=== PATIENT | female | born 1985 | race Hispanic/Latino ===

== ENCOUNTER 2017-10-08 07:02 | Emergency (ER) | payer BC, MEDICAID ==
[~2017-10-08 07:02] MED LIST: AMOX-429 PO; CULTURELLE CAP1 EACH PO; MO6B PO; RANI300T4 PO
== END 2017-10-08 07:50 | disposition home or self-care (01) ==
LOC: EDH 07:02
DX: O99.512 Diseases of the respiratory system complicating pregnancy, second trimester (principal); J06.9 Acute upper respiratory infection, unspecified; H65.03 Acute serous otitis media, bilateral; J45.909 Unspecified asthma, uncomplicated; Z88.1 Allergy status to other antibiotic agents; Z3A.17 17 weeks gestation of pregnancy

== ENCOUNTER 2017-10-11 09:06 | Emergency (ER) | payer BC, MEDICAID ==
[2017-10-11 09:55] LABS: BASOPHILS % (AUTO) 0.4 % (0.0-5.0); EOSINOPHILS % (AUTO) 3.2 % (0.0-8.0); HEMATOCRIT 33.9 % (36-48); LYMPHOCYTES % (AUTO) 26.5 % (21.0-51.0); MEAN CORPUSCULAR HEMOGLOBIN 29.9 pg (27.0-33.0); MEAN CORPUSCULAR HGB CONC 34.6 g/dL (32.0-36.0); MEAN CORPUSCULAR VOLUME 86.3 fL (79-99); MONOCYTES % (AUTO) 5.7 % (3.0-13.0); NEUTROPHILS % (AUTO) 64.2 % (40.0-77.0); PLATELET COUNT (AUTO) 131 K/uL (130-400); RED BLOOD CELL COUNT(AUTO) 3.92 MIL/uL (4.00-5.50); RED CELL DISTRIBUTION WIDTH 13.5 % (11.0-15.5); WHITE BLOOD COUNT (AUTO) 6.9 K/uL (4.8-10.8)
[2017-10-11 09:58] LABS: APPEARANCE,URINE Clear (CLEAR); BILIRUBIN,URINE Negative (NEGATIVE); COLOR,URINE Yellow (YELLOW); GLUCOSE, URINE (UA) Negative (NEGATIVE); KETONES,URINE Negative (NEGATIVE); LEUKOCYTE ESTERASE ,URINE Trace (NEGATIVE); NITRATE,URINE Negative (NEGATIVE); OCCULT BLOOD,URINE Negative (NEGATIVE); PH,URINE 8.5 (5.0-8.0); PROTEIN,URINE Negative (NEGATIVE)
[2017-10-11 10:29] LABS: BACTERIA,URINE Few /HPF (None Seen); RBC,URINE 0-1 /HPF (0-1); WBC,URINE 0-1 /HPF (0-1)
== END 2017-10-11 10:56 | disposition home or self-care (01) ==
LOC: EDH 09:06
DX: O23.42 Unspecified infection of urinary tract in pregnancy, second trimester (principal); J45.909 Unspecified asthma, uncomplicated; Z3A.18 18 weeks gestation of pregnancy; Z88.1 Allergy status to other antibiotic agents
CPT/HCPCS: 36415; 81001; 85025

== ENCOUNTER 2017-10-13 10:35 | Emergency (ER) | payer BC, MEDICAID ==
[2017-10-13 11:20] LABS: APPEARANCE,URINE Clear (CLEAR); BILIRUBIN,URINE Negative (NEGATIVE); COLOR,URINE Yellow (YELLOW); GLUCOSE, URINE (UA) Negative (NEGATIVE); KETONES,URINE Negative (NEGATIVE); LEUKOCYTE ESTERASE ,URINE Negative (NEGATIVE); NITRATE,URINE Negative (NEGATIVE); OCCULT BLOOD,URINE Negative (NEGATIVE); PH,URINE 6.5 (5.0-8.0); PROTEIN,URINE Negative (NEGATIVE)
[2017-10-13 11:26] LABS: BASOPHILS % (AUTO) 0.3 % (0.0-5.0); HEMATOCRIT 32.3 % (36-48); LYMPHOCYTES % (AUTO) 27.5 % (21.0-51.0); MEAN CORPUSCULAR HEMOGLOBIN 29.6 pg (27.0-33.0); MEAN CORPUSCULAR HGB CONC 34.4 g/dL (32.0-36.0); MONOCYTES % (AUTO) 5.1 % (3.0-13.0); NEUTROPHILS % (AUTO) 65.1 % (40.0-77.0); NUCLEATED RED BLOOD CELLS 0.1 % (0.0-0.19); PLATELET COUNT (AUTO) 139 K/uL (130-400); RED BLOOD CELL COUNT(AUTO) 3.76 MIL/uL (4.00-5.50); RED CELL DISTRIBUTION WIDTH 13.3 % (11.0-15.5); WHITE BLOOD COUNT (AUTO) 7.5 K/uL (4.8-10.8)
== END 2017-10-13 12:19 | disposition home or self-care (01) ==
LOC: EDH 10:35
DX: O20.0 Threatened abortion (principal); O23.42 Unspecified infection of urinary tract in pregnancy, second trimester; J45.909 Unspecified asthma, uncomplicated; Z88.1 Allergy status to other antibiotic agents; Z3A.18 18 weeks gestation of pregnancy
CPT/HCPCS: 36415; 76805; 81003; 85025; 87088

== ENCOUNTER 2017-11-01 07:44 | Emergency (ER) | payer BC, MEDICAID ==
[2017-11-01] MEDS ORDERED: SODIUM CHLORIDE 0.9% 1000ML 1,000 ML IV ONE (08:12)
[2017-11-01 08:33] LABS: BASOPHILS % (AUTO) 0.4 % (0.0-5.0); EOSINOPHILS % (AUTO) 1.8 % (0.0-8.0); HEMATOCRIT 32.6 % (36-48); LYMPHOCYTES % (AUTO) 25.1 % (21.0-51.0); MEAN CORPUSCULAR HEMOGLOBIN 30.6 pg (27.0-33.0); MEAN CORPUSCULAR HGB CONC 35.6 g/dL (32.0-36.0); MEAN CORPUSCULAR VOLUME 85.9 fL (79-99); MONOCYTES % (AUTO) 5.2 % (3.0-13.0); NEUTROPHILS % (AUTO) 67.5 % (40.0-77.0); NUCLEATED RED BLOOD CELLS 0.1 % (0.0-0.19); PLATELET COUNT (AUTO) 144 K/uL (130-400); RED BLOOD CELL COUNT(AUTO) 3.79 MIL/uL (4.00-5.50); RED CELL DISTRIBUTION WIDTH 13.3 % (11.0-15.5)
[2017-11-01 08:35] LABS: APPEARANCE,URINE Clear (CLEAR); BILIRUBIN,URINE Negative (NEGATIVE); COLOR,URINE Yellow (YELLOW); GLUCOSE, URINE (UA) Negative (NEGATIVE); KETONES,URINE Negative (NEGATIVE); LEUKOCYTE ESTERASE ,URINE Negative (NEGATIVE); NITRATE,URINE Negative (NEGATIVE); OCCULT BLOOD,URINE Negative (NEGATIVE); PH,URINE 6.5 (5.0-8.0); PROTEIN,URINE Negative (NEGATIVE)
[2017-11-01 08:42] LABS: CREATININE 0.5 mg/dL (0.5-1.5); POTASSIUM 3.5 mmol/L (3.5-5.1)
[2017-11-01 08:50] LABS: ALBUMIN 2.8 g/dL (3.5-5.0); BILIRUBIN,TOTAL 0.4 mg/dL (0.2-1.0); TOTAL PROTEIN, SERUM 6.9 g/dL (6.0-8.3)
== END 2017-11-01 10:03 | disposition home or self-care (01) ==
LOC: EDH 07:44
DX: O26.892 Other specified pregnancy related conditions, second trimester (principal); R42 Dizziness and giddiness; R79.89 Other specified abnormal findings of blood chemistry; D64.9 Anemia, unspecified; J45.909 Unspecified asthma, uncomplicated; Z3A.21 21 weeks gestation of pregnancy; Z88.8 Allergy status to other drugs, medicaments and biological substances
CPT/HCPCS: 36415; 80053; 81003; 85025; 96360; 96361; 99285; J7030

== ENCOUNTER 2017-11-30 07:07 | Observation (INO) | payer BC, MEDICAID ==
[2017-11-30 07:43] LABS: APPEARANCE,URINE Clear (CLEAR); BILIRUBIN,URINE Small (NEGATIVE); COLOR,URINE Dark Yellow (YELLOW); GLUCOSE, URINE (UA) Negative (NEGATIVE); KETONES,URINE Negative (NEGATIVE); LEUKOCYTE ESTERASE ,URINE Trace (NEGATIVE); NITRATE,URINE Negative (NEGATIVE); OCCULT BLOOD,URINE Negative (NEGATIVE); PH,URINE 6.5 (5.0-8.0); PROTEIN,URINE Negative (NEGATIVE)
[2017-11-30 07:49] LABS: BACTERIA,URINE Rare /HPF (None Seen); RBC,URINE 0-1 /HPF (0-1); SQUAMOUS EPITHELIAL CELL,UR Few /LPF (0-2); WBC,URINE 0-1 /HPF (0-1)
== END 2017-11-30 08:44 | disposition home or self-care (01) ==
LOC: EDH 07:07 → LDH 07:08
PROVIDERS: ADMIT Obstetrics & Gynecology; ATTEND Obstetrics & Gynecology
DX: O26.892 Other specified pregnancy related conditions, second trimester (principal); R10.2 Pelvic and perineal pain; Z3A.24 24 weeks gestation of pregnancy
CPT/HCPCS: 81001; 99285; G0378 ×2

== ENCOUNTER 2017-12-02 18:00 | Observation (INO) | payer BC, MEDICAID ==
[2017-12-02 18:45] LABS: APPEARANCE,URINE Clear (CLEAR); BILIRUBIN,URINE Small (NEGATIVE); COLOR,URINE Dark Yellow (YELLOW); GLUCOSE, URINE (UA) Negative (NEGATIVE); KETONES,URINE >=80 mg/dL (NEGATIVE); LEUKOCYTE ESTERASE ,URINE Small (NEGATIVE); NITRATE,URINE Negative (NEGATIVE); OCCULT BLOOD,URINE Negative (NEGATIVE); PH,URINE 5.5 (5.0-8.0); PROTEIN,URINE Negative (NEGATIVE); UROBILINOGEN,URINE >=8.0 mg/dL (0.2-1.0)
[2017-12-02] MEDS ORDERED: LACTATED RINGERS 1000ML 1,000 ML IV SCH (18:45)
[2017-12-02 18:56] LABS: BACTERIA,URINE Few /HPF (None Seen); RBC,URINE 0-1 /HPF (0-1); SQUAMOUS EPITHELIAL CELL,UR Few /LPF (0-2)
[2017-12-02 18:58] LABS: MUCUS,URINE Few LPF (None Seen)
[2017-12-02 20:13] LABS: APPEARANCE,URINE Clear (CLEAR); BILIRUBIN,URINE Small (NEGATIVE); COLOR,URINE Dark Yellow (YELLOW); GLUCOSE, URINE (UA) Negative (NEGATIVE); KETONES,URINE >=80 mg/dL (NEGATIVE); LEUKOCYTE ESTERASE ,URINE Negative (NEGATIVE); NITRATE,URINE Negative (NEGATIVE); OCCULT BLOOD,URINE Negative (NEGATIVE); PROTEIN,URINE Negative (NEGATIVE)
[2017-12-02 20:39] LABS: BACTERIA,URINE Rare /HPF (None Seen); RBC,URINE 0-1 /HPF (0-1); SQUAMOUS EPITHELIAL CELL,UR Rare /LPF (0-2); WBC,URINE 0-1 /HPF (0-1)
== END 2017-12-02 22:05 | disposition home or self-care (01) ==
LOC: EDH 18:00 → LDH 18:11
PROVIDERS: ADMIT Obstetrics & Gynecology; ATTEND Obstetrics & Gynecology
DX: O26.892 Other specified pregnancy related conditions, second trimester (principal); M54.5 Low back pain; Z3A.24 24 weeks gestation of pregnancy
CPT/HCPCS: 81001; 99285; A4351; G0378 ×4; J7120; 96361; 96365

== ENCOUNTER 2017-12-08 10:00 | Emergency (ER) | payer BC, MEDICAID ==
[2017-12-08 11:29] LABS: BASOPHILS % (AUTO) 0.4 % (0.0-5.0); EOSINOPHILS % (AUTO) 0.4 % (0.0-8.0); HEMATOCRIT 32.1 % (36-48); LYMPHOCYTES % (AUTO) 13.8 % (21.0-51.0); MEAN CORPUSCULAR HEMOGLOBIN 30.2 pg (27.0-33.0); MEAN CORPUSCULAR HGB CONC 36.1 g/dL (32.0-36.0); MEAN CORPUSCULAR VOLUME 83.8 fL (79-99); MONOCYTES % (AUTO) 4.7 % (3.0-13.0); NEUTROPHILS % (AUTO) 80.7 % (40.0-77.0); PLATELET COUNT (AUTO) 159 K/uL (130-400); RED BLOOD CELL COUNT(AUTO) 3.83 MIL/uL (4.00-5.50); RED CELL DISTRIBUTION WIDTH 13.2 % (11.0-15.5); WHITE BLOOD COUNT (AUTO) 9.2 K/uL (4.8-10.8)
[2017-12-08 11:31] LABS: CREATININE 0.5 mg/dL (0.5-1.5); POTASSIUM 3.6 mmol/L (3.5-5.1)
[2017-12-08 11:37] LABS: ALBUMIN 2.6 g/dL (3.5-5.0); BILIRUBIN,TOTAL 0.6 mg/dL (0.2-1.0); TOTAL PROTEIN, SERUM 7.1 g/dL (6.0-8.3)
[2017-12-08 11:58] LABS: APPEARANCE,URINE Cloudy (CLEAR); BILIRUBIN,URINE Small (NEGATIVE); COLOR,URINE Dark Yellow (YELLOW); GLUCOSE, URINE (UA) Negative (NEGATIVE); KETONES,URINE Trace mg/dL (NEGATIVE); LEUKOCYTE ESTERASE ,URINE Small (NEGATIVE); NITRATE,URINE Positive (NEGATIVE); OCCULT BLOOD,URINE Negative (NEGATIVE); PROTEIN,URINE Negative (NEGATIVE)
[2017-12-08 12:22] LABS: BACTERIA,URINE Rare /HPF (None Seen); MUCUS,URINE Rare LPF (None Seen); RBC,URINE 0-1 /HPF (0-1); SQUAMOUS EPITHELIAL CELL,UR Rare /LPF (0-2); WBC,URINE 0-1 /HPF (0-1)
== END 2017-12-08 13:50 | disposition home or self-care (01) ==
LOC: EDH 10:00
DX: J45.909 Unspecified asthma, uncomplicated (principal); J20.9 Acute bronchitis, unspecified; Z88.1 Allergy status to other antibiotic agents
CPT/HCPCS: 36415; 80053; 81001; 85025; 87804; 93005

== ENCOUNTER → 2017-12-29 | Outpatient (CLI) | payer BC, MEDICAID | LOC: SHCH 13:52 | PROVIDERS: ATTEND Internal Medicine Cardiovascular Disease | DX: R01.1 Cardiac murmur, unspecified (principal) | CPT/HCPCS: 93306 ==

== ENCOUNTER 2018-07-12 18:23 | Emergency (ER) | payer BC, MEDICAID, OTHER | END 2018-07-12 18:47 | disposition home or self-care (01) | LOC: EDH 18:23 | DX: T78.49XA Other allergy, initial encounter (principal); J45.909 Unspecified asthma, uncomplicated; Z88.1 Allergy status to other antibiotic agents; X58.XXXA Exposure to other specified factors, initial encounter | CPT/HCPCS: 99281 ==

== ENCOUNTER 2018-08-09 13:30 | Emergency (ER) | payer OTHER ==
[2018-08-09] MEDS ORDERED: ACETAMINOPHEN EXTRA STRENGTH 500 MG TABLET ONE (14:05)
[2018-08-09 14:22] LABS: APPEARANCE,URINE Clear (CLEAR); BILIRUBIN,URINE Small (NEGATIVE); COLOR,URINE Dark Yellow (YELLOW); GLUCOSE, URINE (UA) Negative (NEGATIVE); KETONES,URINE Trace mg/dL (NEGATIVE); LEUKOCYTE ESTERASE ,URINE Trace (NEGATIVE); NITRATE,URINE Negative (NEGATIVE); OCCULT BLOOD,URINE Negative (NEGATIVE); PROTEIN,URINE Trace (NEGATIVE)
[2018-08-09 14:23] LABS: EOSINOPHILS % (AUTO) 3.3 % (0.0-8.0); HEMATOCRIT 36.2 % (36-48); MEAN CORPUSCULAR HEMOGLOBIN 28.5 pg (27.0-33.0); MEAN CORPUSCULAR VOLUME 83.8 fL (79-99); NEUTROPHILS % (AUTO) 74.7 % (40.0-77.0); PLATELET COUNT (AUTO) 172 K/uL (130-400); RED BLOOD CELL COUNT(AUTO) 4.31 MIL/uL (4.00-5.50); WHITE BLOOD COUNT (AUTO) 5.8 K/uL (4.8-10.8)
[2018-08-09 14:37] LABS: BACTERIA,URINE Rare /HPF (None Seen); CALCIUM OXALATE CRYSTALS,UR Few /LPF (None Seen); MUCUS,URINE Rare LPF (None Seen); RBC,URINE 0-1 /HPF (0-1); SQUAMOUS EPITHELIAL CELL,UR Rare /HPF (0-2); WBC,URINE 0-1 /HPF (0-1)
[2018-08-09 14:38] LABS: CREATININE 0.7 mg/dL (0.5-1.5); POTASSIUM 3.7 mmol/L (3.5-5.1)
[2018-08-09 14:43] LABS: ALBUMIN 3.3 g/dL (3.5-5.0); BILIRUBIN,TOTAL 0.6 mg/dL (0.2-1.0); TOTAL PROTEIN, SERUM 7.7 g/dL (6.0-8.3)
== END 2018-08-09 15:25 | disposition home or self-care (01) ==
LOC: EDH 13:30
DX: B34.9 Viral infection, unspecified (principal); R11.2 Nausea with vomiting, unspecified; R19.7 Diarrhea, unspecified; R51 Headache; Z88.6 Allergy status to analgesic agent; J45.909 Unspecified asthma, uncomplicated; Z79.899 Other long term (current) drug therapy
CPT/HCPCS: 36415; 80053; 81001; 85025; 87804

== ENCOUNTER → 2021-06-03 | Outpatient (CLI) | payer MEDICARE ==
[~2021-06-03] MED LIST changes: +IBUP-2088 PO; -MO6B PO
== END | disposition home or self-care (01) ==
LOC: RAH 10:22
PROVIDERS: ATTEND Internal Medicine Gastroenterology
DX: K21.9 Gastro-esophageal reflux disease without esophagitis (principal)
CPT/HCPCS: 74220

== ENCOUNTER 2021-06-16 06:15 | Day surgery (SDC) | payer MEDICARE ==
[~2021-06-16] VITALS: Ht 157.5 cm; Wt 119.3 kg
[2021-06-16] VITALS (7 sets, daily range): BP systolic 96–126; BP diastolic 55–68
[~2021-06-16 06:15] MED LIST changes: +0.9%NACL 1000ML 1,000 ML IV ONE; +ALBU8.5H8 IH; -AMOX-429 PO; -CULTURELLE CAP1 EACH PO; +DULO30CA52 PO; +HYDR200T4 PO; -IBUP-2088 PO; +MONT10TA32 PO; +MV-M1TAB20 PO; +MYCO500T PO; +PANT40TA54 PO; +PRED5TAB PO; -RANI300T4 PO; +TRAZ-185 PO
[2021-06-16] MEDS ORDERED: PROPOFOL 10 MG/ML 20ML VIAL IV ONE (07:50)
[2021-06-16] MEDS ORDERED: LIDOCAINE HCL 1% 20 ML VIAL ONE (07:51)
== END 2021-06-16 08:40 | disposition home or self-care (01) ==
LOC: ENDO 06:15 → DAH 06:15 → ENDO 08:40
PROVIDERS: ATTEND Internal Medicine Gastroenterology
DX: R10.13 Epigastric pain (principal); Z20.822 Contact with and (suspected) exposure to COVID-19; K29.50 Unspecified chronic gastritis without bleeding; E66.01 Morbid (severe) obesity due to excess calories; F41.9 Anxiety disorder, unspecified; F32.9 Major depressive disorder, single episode, unspecified; I10 Essential (primary) hypertension; E78.2 Mixed hyperlipidemia; M33.12 Other dermatomyositis with myopathy; K76.0 Fatty (change of) liver, not elsewhere classified; Z90.49 Acquired absence of other specified parts of digestive tract; Z88.8 Allergy status to other drugs, medicaments and biological substances; Z72.89 Other problems related to lifestyle; Z68.42 Body mass index [BMI] 45.0-49.9, adult
CPT/HCPCS: 36415; 43239; 84703; 87635; 88305; 88342; 93005; A4606; C9803; J2704; J7030

== ENCOUNTER → 2022-05-20 | Outpatient (CLI) | payer MEDICARE ==
[~2022-05-20] MED LIST changes: -0.9%NACL 1000ML 1,000 ML IV ONE; +MONT-39 PO; -MONT10TA32 PO
== END | disposition home or self-care (01) ==
LOC: RAH 09:57
PROVIDERS: ATTEND Internal Medicine Gastroenterology
DX: K22.9 Disease of esophagus, unspecified (principal); R13.12 Dysphagia, oropharyngeal phase; R63.30 Feeding difficulties, unspecified; Z20.822 Contact with and (suspected) exposure to COVID-19
CPT/HCPCS: 74230; 87426; 92611

== ENCOUNTER → 2022-05-20 | Outpatient (CLI) | payer MEDICARE | END | disposition home or self-care (01) | LOC: DAH 10:00 → EDSTATUS 05-26 08:00 | PROVIDERS: ATTEND Internal Medicine Gastroenterology | DX: Z01.812 Encounter for preprocedural laboratory examination (principal); K59.00 Constipation, unspecified; R10.30 Lower abdominal pain, unspecified; Z20.822 Contact with and (suspected) exposure to COVID-19 | CPT/HCPCS: 87426 ==

== ENCOUNTER 2023-01-19 14:06 | Emergency (ER) | payer MEDICARE ==
[~2023-01-19] VITALS: Ht 157.5 cm; Wt 118.8 kg
[~2023-01-19 14:06] MED LIST changes: +ACET1TAB97 PO; +AMOX-429 PO; +D-ME1POW16 PO; +DIPH1TAB PO; +NIRM1TAB PO; +ONDA-104 PO; +POTA-187 PO; +PRED20TA3 PO
[2023-01-19 14:56] LABS: BASOPHILS % (AUTO) 0.8 % (0.0-5.0); LYMPHOCYTES % (AUTO) 16.4 % (21.0-51.0); MEAN CORPUSCULAR HEMOGLOBIN 26.7 pg (27.0-33.0); MEAN CORPUSCULAR HGB CONC 31.8 g/dL (32.0-36.0); MONOCYTES % (AUTO) 8.4 % (3.0-13.0); NEUTROPHILS % (AUTO) 71.2 % (40.0-77.0); PLATELET COUNT (AUTO) 193 K/uL (130-400); RED BLOOD CELL COUNT(AUTO) 4.76 MIL/uL (4.00-5.50); RED CELL DISTRIBUTION WIDTH 12.8 % (11.0-15.5); WHITE BLOOD COUNT (AUTO) 8.4 K/uL (4.8-10.8)
[2023-01-19 15:02] LABS: APPEARANCE,URINE CLEAR (CLEAR); BILIRUBIN,URINE NEGATIVE (NEGATIVE); COLOR,URINE LIGHT-YELLOW (YELLOW); GLUCOSE, URINE (UA) NEGATIVE (NEGATIVE); KETONES,URINE NEGATIVE (NEGATIVE); LEUKOCYTE ESTERASE ,URINE 25 Leu/uL (NEGATIVE); NITRATE,URINE NEGATIVE (NEGATIVE); OCCULT BLOOD,URINE NEGATIVE (NEGATIVE); PROTEIN,URINE NEGATIVE (NEGATIVE); UROBILINOGEN,URINE 0.2 mg/dL (0.2-1.0)
[2023-01-19 15:17] LABS: CREATININE 0.7 mg/dL (0.5-1.5); POTASSIUM 3.7 mmol/L (3.5-5.1)
[2023-01-19 15:19] LABS: HCG,QUALITATIVE URINE NEGATIVE (NEGATIVE)
[2023-01-19 15:24] LABS: RBC,URINE 0-1 /HPF (0-1); SQUAMOUS EPITHELIAL CELL,UR FEW /HPF (0-2)
[2023-01-19 15:24] LABS: ALBUMIN 3.6 g/dL (3.5-5.0)
[2023-01-19] MEDS ORDERED: ONDANSETRON 4MG INJ IVP ONE (16:30)
[2023-01-19] MEDS ORDERED: ACETAMINOPHEN 500 MG TABLET PO ONE (17:00)
[2023-01-19] MEDS ORDERED: IOHEXOL 350 MG/ML 100ML INFUS..BTL IV ONE (17:17)
[2023-01-19] MEDS ORDERED: ONDA4TAB10 PO (19:20)
[2023-01-19] MEDS ORDERED: SULF1TAB42 PO (19:20)
[2023-01-19 19:35] VITALS: BP 115/62
== END 2023-01-19 19:42 | disposition home or self-care (01) ==
LOC: EDH 14:06
DX: R11.2 Nausea with vomiting, unspecified (principal); N39.0 Urinary tract infection, site not specified; R19.7 Diarrhea, unspecified; J44.9 Chronic obstructive pulmonary disease, unspecified; M79.7 Fibromyalgia; Z79.899 Other long term (current) drug therapy; Z79.52 Long term (current) use of systemic steroids; Z88.1 Allergy status to other antibiotic agents; Z88.7 Allergy status to serum and vaccine; Z90.49 Acquired absence of other specified parts of digestive tract; Z90.89 Acquired absence of other organs
CPT/HCPCS: 99285; 74177; 96374; 80053; 85025; 81001; 81025; 36415; J2405; Q9967

== ENCOUNTER 2023-03-18 08:09 | Emergency (ER) | payer MEDICARE ==
[~2023-03-18] VITALS: Ht 157.5 cm; Wt 117.9 kg
[~2023-03-18 08:09] MED LIST changes: -HYDR200T4 PO; +HYDR200T75 PO; +ONDA4TAB10 PO; +SULF1TAB42 PO
[2023-03-18] MEDS ORDERED: IPRATROPIUM/ALBUTEROL SULFATE 3 ML SOLUTION IH ONE ×5 (08:32→10:30)
[2023-03-18] MEDS ORDERED: IPRATROPIUM/ALBUTEROL SULFATE 3 ML SOLUTION IH PRN (09:00)
[2023-03-18 09:02] LABS: BASOPHILS % (AUTO) 0.8 % (0.0-5.0); EOSINOPHILS % (AUTO) 5.1 % (0.0-8.0); HEMATOCRIT 40.5 % (36-48); LYMPHOCYTES % (AUTO) 32.9 % (21.0-51.0); MEAN CORPUSCULAR HEMOGLOBIN 27.4 pg (27.0-33.0); MEAN CORPUSCULAR HGB CONC 31.9 g/dL (32.0-36.0); MONOCYTES % (AUTO) 9.8 % (3.0-13.0); NEUTROPHILS % (AUTO) 51.2 % (40.0-77.0); PLATELET COUNT (AUTO) 150 K/uL (130-400); RED BLOOD CELL COUNT(AUTO) 4.71 MIL/uL (4.00-5.50); RED CELL DISTRIBUTION WIDTH 13.7 % (11.0-15.5); WHITE BLOOD COUNT (AUTO) 4.9 K/uL (4.8-10.8)
[2023-03-18] MEDS ORDERED: DEXAMETHASONE SOD PHOSPHATE 4 MG/ML 1ML VIAL IVP ONE (09:30)
[2023-03-18 09:42] LABS: POTASSIUM 3.5 mmol/L (3.5-5.1); TOTAL PROTEIN, SERUM 6.7 g/dL (6.0-8.3)
[2023-03-18 10:16] LABS: ALBUMIN 3.7 g/dL (3.5-5.0)
[2023-03-18 10:22] LABS: CREATININE 0.7 mg/dL (0.5-1.5)
[2023-03-18] MEDS ORDERED: DEXAMETHASONE SOD PHOSPHATE 10MG/ML 1ML VIAL ONE (11:03)
[2023-03-18] MEDS ORDERED: GUAIFENESIN-CODEINE 5 ML SYRUP PO ONE (11:30)
[2023-03-18] MEDS ORDERED: KETOROLAC 15MG/ML VIAL (15MG/ML) IV ONE (11:30)
[2023-03-18 13:48] LABS: ABG BASE EXCESS 1.2 mmol/L (-2.0-3.0); ABG OXYGEN SATURATION 93.7 % (95.0-99.0); ABG PCO2 42 mmHg (32-45)
[2023-03-18 14:04] VITALS: BP 115/76
[2023-03-18] MEDS ORDERED: GUAIFACSF PO (14:09)
[2023-03-18] MEDS ORDERED: METH4TAB3 PO (14:09)
== END 2023-03-18 14:29 | disposition home or self-care (01) ==
LOC: EDH 08:09
DX: J45.909 Unspecified asthma, uncomplicated (principal); M33.90 Dermatopolymyositis, unspecified, organ involvement unspecified; J44.9 Chronic obstructive pulmonary disease, unspecified; Z90.49 Acquired absence of other specified parts of digestive tract; Z90.89 Acquired absence of other organs; Z79.899 Other long term (current) drug therapy
CPT/HCPCS: 99285; 96374; 71045; 96375; 82947; 84484; 80053; 82803; 85025; 83605 ×2; 86140; 36415; 93005; 85018; 82435; 84132; 84295; 94640 ×3; J1100; J1885

== ENCOUNTER 2023-09-06 11:49 | Emergency (ER) | payer MEDICARE ==
[~2023-09-06] VITALS: Ht 157.5 cm; Wt 115.2 kg
[~2023-09-06 11:49] MED LIST changes: +GUAIFACSF PO; +METH4TAB3 PO
[2023-09-06] MEDS ORDERED: KETOROLAC 30MG VIAL (30MG/ML) IM ONE (15:30)
[2023-09-06] MEDS ORDERED: IBUP-2070 PO (17:54)
[2023-09-06 18:16] VITALS: BP 126/68; PULSE 80; RESP 18; O2SAT 99
== END 2023-09-06 18:19 | disposition home or self-care (01) ==
LOC: EDH 11:49
DX: S93.401A Sprain of unspecified ligament of right ankle, initial encounter (principal); M25.571 Pain in right ankle and joints of right foot; J44.9 Chronic obstructive pulmonary disease, unspecified; M79.7 Fibromyalgia; J45.909 Unspecified asthma, uncomplicated; Z79.52 Long term (current) use of systemic steroids; Z79.624 Long term (current) use of inhibitors of nucleotide synthesis; Z79.899 Other long term (current) drug therapy; Z88.1 Allergy status to other antibiotic agents; Z88.7 Allergy status to serum and vaccine; Z90.49 Acquired absence of other specified parts of digestive tract; X50.1XXA Overexertion from prolonged static or awkward postures, initial encounter; Y93.89 Activity, other specified; Y92.89 Other specified places as the place of occurrence of the external cause; Y99.8 Other external cause status
CPT/HCPCS: 99284; 73600; 73630; 73562; 96372; J1885

== ENCOUNTER 2023-10-18 17:34 | Emergency (ER) | payer MEDICARE ==
[~2023-10-18 17:34] MED LIST changes: +IBUP-2070 PO
== END 2023-10-18 20:39 | disposition left against medical advice (07) ==
LOC: EDH 17:34
DX: R19.7 Diarrhea, unspecified (principal); Z53.21 Procedure and treatment not carried out due to patient leaving prior to being seen by health care provider

== ENCOUNTER → 2024-01-24 | Outpatient (CLI) | payer MEDICARE ==
[~2024-01-24] MED LIST changes: -ACET1TAB97 PO; -AMOX-429 PO; -D-ME1POW16 PO; +DEXL60CA6 PO; -DIPH1TAB PO; +FAMO40TA7 PO; -GUAIFACSF PO; -IBUP-2070 PO; -METH4TAB3 PO; -MV-M1TAB20 PO; -NIRM1TAB PO; -ONDA-104 PO; -ONDA4TAB10 PO; +OXYGEN NASAL; -PANT40TA54 PO; -POTA-187 PO; -PRED20TA3 PO; +VITAD50000 PO
== END | disposition home or self-care (01) ==
LOC: RAH 12:46
PROVIDERS: ATTEND Internal Medicine Gastroenterology
DX: R13.12 Dysphagia, oropharyngeal phase (principal); R63.30 Feeding difficulties, unspecified
CPT/HCPCS: 74230; 92611

== ENCOUNTER 2024-06-29 09:06 | Emergency (ER) | payer OTHER, MEDICARE ==
[~2024-06-29] VITALS: Ht 157.5 cm; Wt 129.7 kg
[~2024-06-29 09:06] MED LIST changes: +DEXL60CA18 PO; -DEXL60CA6 PO
[2024-06-29 09:57] LABS: BASOPHILS # (AUTO) 0.06 K/uL (0.00-0.20); BASOPHILS % (AUTO) 0.7 % (0.0-5.0); EOSINOPHILS # (AUTO) 0.37 K/uL (0.00-0.70); EOSINOPHILS % (AUTO) 4.3 % (0.0-8.0); HEMATOCRIT 41.8 % (36-48); IMMATURE GRANULOCYTE ABSOLUTE 0.04 K/uL (0-1); LYMPHOCYTES # (AUTO) 1.4 K/uL (1.0-4.8); MEAN CORPUSCULAR HEMOGLOBIN 28.9 pg (27.0-33.0); MEAN CORPUSCULAR HGB CONC 33.3 g/dL (32.0-36.0); MEAN CORPUSCULAR VOLUME 86.9 fL (79-99); MONOCYTES # (AUTO) 0.7 K/uL (0.1-1.0); MONOCYTES % (AUTO) 8.2 % (3.0-13.0); NEUTROPHILS % (AUTO) 70.3 % (40.0-77.0); PLATELET COUNT (AUTO) 168 K/uL (130-400); RED BLOOD CELL COUNT(AUTO) 4.81 MIL/uL (4.00-5.50); RED CELL DISTRIBUTION WIDTH 13.6 % (11.0-15.5); WHITE BLOOD COUNT (AUTO) 8.6 K/uL (4.8-10.8)
[2024-06-29 10:03] LABS: CREATININE 0.6 mg/dL (0.5-1.0); POTASSIUM 4.4 mmol/L (3.5-5.1)
[2024-06-29] MEDS: acetaMINOPHEN 500 MG TABLET PO ONE (10:16)
[2024-06-29 10:24] LABS: APPEARANCE,URINE CLEAR (CLEAR); BILIRUBIN,URINE NEGATIVE (NEGATIVE); COLOR,URINE LIGHT-YELLOW (YELLOW); GLUCOSE, URINE (UA) NEGATIVE (NEGATIVE); KETONES,URINE NEGATIVE (NEGATIVE); LEUKOCYTE ESTERASE ,URINE 250 Leu/uL (NEGATIVE); NITRATE,URINE NEGATIVE (NEGATIVE); OCCULT BLOOD,URINE SMALL (NEGATIVE); PROTEIN,URINE NEGATIVE (NEGATIVE); UROBILINOGEN,URINE 0.2 mg/dL (0.2-1.0)
[2024-06-29 10:25] LABS: ADD UA MICROSCOPIC YES
[2024-06-29 10:27] LABS: BACTERIA,URINE RARE /HPF (None Seen); MUCUS,URINE RARE LPF (None Seen); SQUAMOUS EPITHELIAL CELL,UR FEW /HPF (0-2)
[2024-06-29] MEDS: furoSEMIDE 40MG VIAL IV ONE (11:12)
[2024-06-29] MEDS: ketOROlac 15MG/ML VIAL (15MG/ML) IV ONE (11:42)
[2024-06-29] MEDS ORDERED: CIPR-278 PO (12:13)
[2024-06-29] MEDS ORDERED: PRED20TA3 PO (12:13)
[2024-06-29] MEDS: Solu-medROL 40MG VIAL IVP ONE (12:33)
[2024-06-29 13:05] VITALS: PULSE 90; RESP 20
[2024-06-29] MEDS: IpraTROPium/alBUTERol SULFATE 3 ML SOLUTION IH ONE (14:00)
[2024-06-29 14:37] VITALS: BP 135/89; PULSE 89; RESP 20; TEMP 99; O2SAT 97
== END 2024-06-29 14:45 | disposition home or self-care (01) ==
LOC: EDH 09:06
DX: R07.89 Other chest pain (principal); E66.9 Obesity, unspecified; M79.7 Fibromyalgia; N39.0 Urinary tract infection, site not specified; J44.9 Chronic obstructive pulmonary disease, unspecified; M19.90 Unspecified osteoarthritis, unspecified site; Z88.1 Allergy status to other antibiotic agents; Z88.7 Allergy status to serum and vaccine; Z79.899 Other long term (current) drug therapy; Z90.89 Acquired absence of other organs; Z90.49 Acquired absence of other specified parts of digestive tract
CPT/HCPCS: 99285; 96374; 96375; 71045; 84484; 80048; 83880; 85025; 87086; 81001; 81025; 36415; 93005; 94640; J2919; J1940; J1885

== ENCOUNTER → 2024-07-31 | Outpatient (CLI) | payer OTHER, MEDICAID ==
[~2024-07-31] MED LIST changes: +CIPR-278 PO; +PRED20TA3 PO
== END | disposition home or self-care (01) ==
LOC: RAH 09:35
PROVIDERS: ATTEND Internal Medicine Gastroenterology
DX: K30 Functional dyspepsia (principal); R11.2 Nausea with vomiting, unspecified; R10.9 Unspecified abdominal pain; R68.81 Early satiety; R14.0 Abdominal distension (gaseous)
CPT/HCPCS: 78264; A9541

== ENCOUNTER 2024-12-20 21:54 | Emergency (ER) | payer OTHER, MEDICARE ==
[~2024-12-20] VITALS: Ht 157.5 cm; Wt 131.5 kg
[2024-12-20 22:36] LABS: CREATININE 0.6 mg/dL (0.5-1.0); POTASSIUM 3.3 mmol/L (3.5-5.1)
[2024-12-20] MEDS: ondanSETRON 4MG INJ IVP ONE (22:38)
[2024-12-20] MEDS: 0.9%NACL 1000ML 1,000 ML IV ONE (22:38)
[2024-12-20] MEDS: FAMOTIDINE 20MG VIAL IV ONE (22:38)
[2024-12-20 22:41] LABS: ALBUMIN 3.5 g/dL (3.5-5.0); BILIRUBIN,DIRECT 0.1 mg/dL (0.0-0.3); BILIRUBIN,TOTAL 0.4 mg/dL (0.2-1.0); TOTAL PROTEIN, SERUM 6.5 g/dL (6.0-8.3)
[2024-12-20 22:47] LABS: APPEARANCE,URINE CLEAR (CLEAR); BILIRUBIN,URINE NEGATIVE (NEGATIVE); COLOR,URINE LIGHT-YELLOW (YELLOW); GLUCOSE, URINE (UA) NEGATIVE (NEGATIVE); KETONES,URINE NEGATIVE (NEGATIVE); LEUKOCYTE ESTERASE ,URINE NEGATIVE Leu/uL (NEGATIVE); NITRATE,URINE NEGATIVE (NEGATIVE); OCCULT BLOOD,URINE NEGATIVE (NEGATIVE); PROTEIN,URINE NEGATIVE (NEGATIVE); UROBILINOGEN,URINE 0.2 mg/dL (0.2-1.0)
[2024-12-20 22:48] LABS: ADD UA MICROSCOPIC NO
[2024-12-20 23:19] LABS: BASOPHILS # (AUTO) 0.06 K/uL (0.00-0.20); BASOPHILS % (AUTO) 0.6 % (0.0-5.0); EOSINOPHILS # (AUTO) 0.36 K/uL (0.00-0.70); EOSINOPHILS % (AUTO) 3.7 % (0.0-8.0); HEMATOCRIT 39.6 % (36-48); IMMATURE GRANULOCYTE ABSOLUTE 0.04 K/uL (0-1); LYMPHOCYTES # (AUTO) 2.1 K/uL (1.0-4.8); LYMPHOCYTES % (AUTO) 21.7 % (21.0-51.0); MEAN CORPUSCULAR HEMOGLOBIN 29.1 pg (27.0-33.0); MEAN CORPUSCULAR HGB CONC 33.1 g/dL (32.0-36.0); MONOCYTES # (AUTO) 0.9 K/uL (0.1-1.0); MONOCYTES % (AUTO) 8.8 % (3.0-13.0); NEUTROPHILS # (AUTO) 6.4 K/uL (1.8-7.7); NEUTROPHILS % (AUTO) 64.8 % (40.0-77.0); PLATELET COUNT (AUTO) 216 K/uL (130-400); RED CELL DISTRIBUTION WIDTH 12.9 % (11.0-15.5); WHITE BLOOD COUNT (AUTO) 9.8 K/uL (4.8-10.8)
[2024-12-20] MEDS: ketOROlac 15MG/ML VIAL (15MG/ML) IV ONE (23:21)
--- NOTE | 2024-12-21 00:21 | ERN ---
General Chief Complaint: Abdominal Pain Stated Complaint: EPIGASTRIC PAIN Time Seen by MD: 22:10 Time Seen by Midlevel: 22:10 Source: patient History of Present Illness Initial Comments The patient is a 39-year-old female presenting to the emergency department with midepigastric abdominal pain that radiates to the left and towards the back. She reports some mild shortness of breath this morning. She does have a history of multiple immunosuppressant diseases, gastritis, and liver fibrosis stage IV. Patient presents to emergency department multiple times over the last couple of months for the same symptoms. Allergies: Coded Allergies: Tetanus Vaccines and Toxoid (Unverified Allergy, Unknown, HIVES, 01/18/23) ceftriaxone (Verified Allergy, Unknown, 09/06/14) Home Meds Active Scripts Ciprofloxacin HCl (Cipro) 500 Mg Tablet, 1 TAB PO BID for 10 Days, #20 TAB 0 Refills Prov:HUNG SANTOS MD 06/29/24 Prednisone (Prednisone) 20 Mg Tablet, 1 TAB PO AD for 6 Days, #14 TAB 0 Refills TAKE 1 TAB BY MOUTH THREE TIMES PER DAY X3 DAYS, THEN TAKE 1 TAB BY MOUTH TWICE A DAY X2 DAYS, THEN TAKE 1 TAB BY MOUTH ONCE A DAY X1 DAY. Prov:HUNG SANTOS MD 06/29/24 Reported Medications [Oxygen] No Conflict Check, 2 L NASAL HS PRN for SHORTNESS OF BREATH 11/30/23 Cholecalciferol (Vitamin D3) 1,250 Mcg (80042 Unit) Cap, 25522 UNITS PO QWEEK, CAP 11/30/23 Sulfamethoxazole/Trimethoprim (Bactrim Ds Tablet) 800 Mg-160 Mg Tablet, 1 TAB PO QMOWEFR, TAB 11/30/23 Famotidine (Famotidine) 40 Mg Tablet, 40 MG PO HS, TAB 11/30/23 Dexlansoprazole (Dexlansoprazole Dr) 60 Mg Cap.dr.bp, 60 MG PO DAILY 11/30/23 Mycophenolate Mofetil (Cellcept) 500 Mg Tablet, 1500 MG PO DAILY, TAB 11/30/23 Albuterol Sulfate (Proair Hfa) 8.5 Gm Hfa.aer.ad, 8.5 GM IH BID PRN for SHORTNESS OF BREATH/WHEEZING 06/12/21 Montelukast Sodium (Montelukast Sodium) 10 Mg Tablet, 10 MG PO HS, TAB 06/12/21 Prednisone (Prednisone) 5 Mg Tablet, 7.5 MG PO DAILY, TAB 06/12/21 Mycophenolate Mofetil (Cellcept) 500 Mg Tablet, 1000 MG PO HS, TAB 06/12/21 Hydroxychloroquine Sulfate (Hydroxychloroquine Sulfate) 200 Mg Tablet, 200 MG PO DAILY, TAB 06/12/21 Trazodone HCl (Trazodone HCl) 50 Mg Tablet, 75 MG PO HS, TAB 06/12/21 Duloxetine HCl (Duloxetine HCl) 30 Mg Capsule.dr, 60 MG PO BID, CAP 06/12/21 Past Medical History Past Medical History: COPD, Immunosuppression, Liver Disease Medical History Other: RAYNAUDS DISEASE, OSTEOARTHRITIS, ADDISONS DISEASE Past Surgical History: None Social History Social History: Negative, Lives with family Female( History) History: Not Applicable ROS Dictation CONSTITUTIONAL: Negative except for HPI HEAD/FACE: Negative except for HPI EENT: Negative except for HPI RESPIRATORY: Negative except for HPI GASTROINTESTINAL/ABDOMINAL: Negative except for HPI GENITOURINARY: Negative except for HPI MUSCULOSKELETAL: Negative except for HPI INTEGUMENTARY: Negative except for HPI NEUROLOGICAL/PSYCH: Negative except for HPI HEMATOLOGIC/LYMPHATIC: Negative except for HPI All Systems Negative, Except as noted above. 13 point review of systems assessed and all negative except for above. Physical Exam Physical Exam Dictation Vital Signs reviewed General Appearance: Alert, oriented x 3, no acute distress, well developed, nourished. Head and Face: non-traumatic. Eyes: PERRL, pink conjunctivas, eyelid no trauma, anterior chamber with arcus senilis. Ears: Pinnas intact and no signs of trauma or erythema ear canals clear and no discharge TM no erythema Nose: No discharge, no bleeding. Oropharynx: Mouth normal, tongue pink, pharynx clear,no erythema, tonsils no exudates, no abscesses noted, mucous membrane moist Neck: Supple, non-tender, no thyromegaly, no masses, no JVD, no bruits Breast:Deferred Chest:No tenderness, no crepitus, no paradoxical movement, no retractions Lungs:Clear, well-ventilated, symmetric, no rales, no wheezing, no rhonchi, no stridor, good breath sounds bilaterally Heart: Regular rate, regular rhythm, no murmur, no gallops Vascular: no peripheral edema, Abdomen: Soft, positive bowel sounds, nondistended, no guarding, nontender, no rebound, no masses no hepatomegaly, no splenomegaly, no Walsh's sign, no hernias. Rectal: Deferred Genital: Deferred Neurological: Normal speech, motor function intact, sensory function intact Musculoskeletal: Neck nontender, full range of motion, back nontender, full range of motion, Extremities: nontender, full range of motion Skin: Color pink, dry, no turgor, no rash, no lacerations, no abrasions, no contusions. Lymphatic: Deferred Results Laboratory and Microbiology Lab and Micro Result Laboratory Tests Test 12/20/24 22:15 12/20/24 22:17 Urine Color LIGHT-YELLOW (YELLOW) Urine Appearance CLEAR (CLEAR) Urine pH 6.0 (5.0-8.0) Urine Specific [place] 1.023 (1.001-1.031) Urine Protein NEGATIVE mg/dL (NEGATIVE) Urine Glucose (UA) NEGATIVE mg/dL (NEGATIVE) Urine Ketones NEGATIVE mg/dL (NEGATIVE) Urine Occult Blood NEGATIVE (NEGATIVE) Urine Nitrate NEGATIVE (NEGATIVE) Urine Bilirubin NEGATIVE mg/dL (NEGATIVE) Urine Urobilinogen 0.2 mg/dL (0.2-1.0) Urine Leukocyte Esterase NEGATIVE Chance/uL White Blood Count 9.8 K/uL (4.8-10.8) Red Blood Count 4.50 MIL/uL (4.00-5.50) Hemoglobin 13.1 g/dL (12.0-16.0) Hematocrit 39.6 % (36-48) Mean Corpuscular Volume 88.0 fL (79-99) Mean Corpuscular Hemoglobin 29.1 pg (27.0-33.0) Mean Corpuscular Hemoglobin Concent 33.1 g/dL (32.0-36.0) Red Cell Distribution Width 12.9 % (11.0-15.5) Platelet Count 216 K/uL (130-400) Mean Platelet Volume 10.4 fL (7.5-10.5) Immature Granulocyte % (Auto) 0.4 % (0-1) Neutrophils (%) (Auto) 64.8 % (40.0-77.0) Lymphocytes (%) (Auto) 21.7 % (21.0-51.0) Monocytes (%) (Auto) 8.8 % (3.0-13.0) Eosinophils (%) (Auto) 3.7 % (0.0-8.0) Basophils (%) (Auto) 0.6 % (0.0-5.0) Neutrophils # (Auto) 6.4 K/uL (1.8-7.7) Lymphocytes # (Auto) 2.1 K/uL (1.0-4.8) Monocytes # (Auto) 0.9 K/uL (0.1-1.0) Eosinophils # (Auto) 0.36 K/uL (0.00-0.70) Basophils # (Auto) 0.06 K/uL (0.00-0.20) Absolute Immature Granulocyte (auto 0.04 K/uL (0-1) Nucleated Red Blood Cells 0.0 % (0.0-0.19) Sodium Level 136 mmol/L (136-145) Potassium Level 3.3 mmol/L (3.5-5.1) L Chloride Level 101 mmol/L (101-111) Carbon Dioxide Level 31 mmol/L (21-32) Blood Urea Nitrogen 11 mg/dL (7-18) Creatinine 0.6 mg/dL (0.5-1.0) Glomerular Filtration Rate Calc 117 mL/min (>90) Random Glucose 90 mg/dL (70-105) Total Calcium 9.1 mg/dL (8.5-10.1) Total Bilirubin 0.4 mg/dL (0.2-1.0) Direct Bilirubin 0.1 mg/dL (0.0-0.3) Aspartate Amino Transf (AST/SGOT) 29 U/L (10-37) Alanine Aminotransferase (ALT/SGPT) 48 U/L (12-78) Alkaline Phosphatase 83 U/L (50-136) Troponin I High Sensitivity 12 ng/L (4-50) Total Protein 6.5 g/dL (6.0-8.3) Albumin 3.5 g/dL (3.5-5.0) Lipase 17 U/L (16-77) Serum Test, Qualitative NEGATIVE (NEGATIVE) Labs Reviewed?: Yes MDM MDM: Differential diagnosis: Gastritis, pancreatitis, acute cholecystitis, drug- seeking behavior There are no social concerns with this patient. Prescription drug management Prescriptions will include: None Medical management and examination interpretation discussions were had by me with other qualified healthcare professionals as indicated for the patient's care. ED Course Orders Procedure Category Date Status Time Basic Metabolic Panel LAB 12/20/24 Complete 22:10 Lipase LAB 12/20/24 Complete 22:10 Hepatic Function Panel LAB 12/20/24 Complete 22:10 Testing, LAB 12/20/24 Complete Serum Hcg 22:10 0.9%Nacl 1000ml (Ns PHA 12/20/24 Complete 1000ml) 22:30 Ondansetron 4mg Inj PHA 12/20/24 Complete (Zofran 4mg Inj) 22:30 Famotidine 20mg Vial PHA 12/20/24 Complete (Pepcid 20mg Vial) 22:30 Basic Metabolic Panel LAB 12/20/24 Complete 22:17 Urinalysis Profile LAB 12/20/24 Complete 22:37 Cbc With Differential LAB 12/20/24 Complete 22:52 12 Lead Ekg Tracing- EKG 12/20/24 Complete Technical 23:03 Chest 1vw RAD 12/20/24 Taken 23:03 Troponin I High LAB 12/20/24 Complete Sensitivity 23:03 Ketorolac PHA 12/20/24 Complete Tromethamine 15mg/Ml 23:30 Current Medications Medications (Trade) Dose Ordered Sig/Saulo Route PRN Reason Start Time Stop Time Status Last Admin Dose Admin Famotidine (Pepcid 20mg Vial) 20 mg ONCE ONCE IV 12/20/24 22:30 12/20/24 22:31 DC 12/20/24 22:38 Ketorolac Tromethamine (toRADol) 15 mg ONCE ONCE IV 12/20/24 23:30 12/20/24 23:31 DC 12/20/24 23:21 Ondansetron HCl (zoFRAN 4MG INJ) 4 mg ONCE ONCE IVP 12/20/24 22:30 12/20/24 22:31 DC 12/20/24 22:38 Sodium Chloride 1,000 ml @ 0 mls/hr ONCE ONCE IV 12/20/24 22:30 12/20/24 22:31 DC 12/20/24 22:38 Vital Signs Date Time Temp Pulse Resp B/P (MAP) Pulse Ox O2 Delivery O2 Flow Rate FiO2 12/21/24 00:29 98.4 88 18 126/76 97 Room Air* 0 21 12/20/24 22:47 98.4 87 18 119/53 96 Room Air* 0 21 12/20/24 21:56 98.1 91 20 120/87 96 Room Air DX & DISP Disposition: Discharge Departure Impression: Primary Impression: Generalized muscle ache Condition: Stable Referrals: JAMIE GIANG (PCP) Time of Disposition: 00:21 I have reviewed the case, and I agree with, Diagnosis and Plan I performed the substantive portion of the visit. I have reviewed and personally made and approve the management plan that is documented in the note by myself or the ANNABEL. I acknowledge for responsibility for the patient's management plan. ANJEL WHITLEY Dec 21, 2024 00:21
[2024-12-21 00:29] VITALS: BP 126/76; PULSE 88; RESP 18; TEMP 98.4; O2SAT 97
--- NOTE | 2024-12-21 07:09 | EKG ---
[facility] Test Date: 2024-12-20 Test Time: 22:06:33 Pat Name: LEXY DELCID Department: [facility] [address] Room: Gender: Female [employer]: [id number] : 1985 Requested By: ANJEL WHITLEY Order Number: [id number] Reading MD: Measurements Intervals Gregory Rate: 84 P: 53 CT: 138 QRS: 63 QRSD: 92 T: 6 QT: 374 QTc: 442 Interpretive Statements Sinus rhythm No previous ECG available for comparison Please click the below link to view image of tracing.
--- NOTE | 2024-12-21 15:09 | HMCIMG ---
Exam Type: CHEST 1VW Clinical Information: sob Comparison: None Findings: The lungs are clear of infiltrates. The heart is normal in size. The bony and soft tissue structures of the chest are unremarkable. Impression: Clear lungs.
== END 2024-12-21 00:38 | disposition home or self-care (01) ==
LOC: EDH 21:54
DX: R10.13 Epigastric pain (principal); R06.02 Shortness of breath; J44.9 Chronic obstructive pulmonary disease, unspecified; M19.90 Unspecified osteoarthritis, unspecified site; Z79.52 Long term (current) use of systemic steroids; Z79.624 Long term (current) use of inhibitors of nucleotide synthesis; Z79.899 Other long term (current) drug therapy; Z87.19 Personal history of other diseases of the digestive system; Z88.1 Allergy status to other antibiotic agents; Z88.7 Allergy status to serum and vaccine
CPT/HCPCS: 99285; 96374; 96375; 71045; 80076; 84484; 80048; 84703; 83690; 85025; 81003; 36415; 93005; J1885; J3490; J7030; J2405

== ENCOUNTER 2025-01-12 20:24 | Emergency (ER) | payer OTHER, MEDICARE ==
[~2025-01-12] VITALS: Ht 157.5 cm; Wt 140.6 kg
[2025-01-12 20:50] VITALS: TEMP 98.1
[2025-01-12] MEDS: ondanSETRON 4MG INJ IVP ONE (21:27)
[2025-01-12] MEDS: morPHINE 4 MG SYG IVP ONE (21:27)
[2025-01-12] MEDS: 0.9%NACL 1000ML 1,000 ML IV ONE (21:27)
[2025-01-12 21:29] LABS: BASOPHILS # (AUTO) 0.06 K/uL (0.00-0.20); BASOPHILS % (AUTO) 0.8 % (0.0-5.0); EOSINOPHILS # (AUTO) 0.33 K/uL (0.00-0.70); EOSINOPHILS % (AUTO) 4.4 % (0.0-8.0); HEMATOCRIT 38.1 % (36-48); IMMATURE GRANULOCYTE ABSOLUTE 0.02 K/uL (0-1); LYMPHOCYTES # (AUTO) 2.2 K/uL (1.0-4.8); LYMPHOCYTES % (AUTO) 28.6 % (21.0-51.0); MEAN CORPUSCULAR VOLUME 90.5 fL (79-99); MONOCYTES # (AUTO) 0.8 K/uL (0.1-1.0); MONOCYTES % (AUTO) 10.1 % (3.0-13.0); NEUTROPHILS # (AUTO) 4.2 K/uL (1.8-7.7); NEUTROPHILS % (AUTO) 55.8 % (40.0-77.0); PLATELET COUNT (AUTO) 180 K/uL (130-400); RED BLOOD CELL COUNT(AUTO) 4.21 MIL/uL (4.00-5.50); RED CELL DISTRIBUTION WIDTH 12.4 % (11.0-15.5); WHITE BLOOD COUNT (AUTO) 7.5 K/uL (4.8-10.8)
[2025-01-12 21:38] LABS: CREATININE 0.8 mg/dL (0.5-1.0); POTASSIUM 3.6 mmol/L (3.5-5.1)
[2025-01-12 21:42] LABS: ALBUMIN 3.5 g/dL (3.5-5.0); BILIRUBIN,DIRECT 0.1 mg/dL (0.0-0.3); BILIRUBIN,TOTAL 0.3 mg/dL (0.2-1.0); TOTAL PROTEIN, SERUM 6.5 g/dL (6.0-8.3)
--- NOTE | 2025-01-12 22:21 | HMCIMG ---
CT ABDOMEN/PELVIS W/O CONTRAST HISTORY: Right flank pain. COMPARISON: 01/19/2033 TECHNIQUE: Multiple sequential axial images of the abdomen and pelvis were obtained from the dome of the diaphragm through symphysis pubis. Patient was not given contrast through intravenous route. Oral contrast was not given. FINDINGS: No pleural effusion is seen bilaterally. Bilateral groundglass patchy pulmonary infiltrates are seen. Degenerative changes of the thoracolumbar spine are present. The heart is not enlarged. Liver measures 20 cm. Postcholecystectomy changes. The liver, spleen, adrenal glands and pancreas are unremarkable. There is no evidence of hydronephrosis bilaterally. No evidence of renal stone is seen. Fecal material is seen in the colon. There are normal size retroperitoneal and mesenteric lymph nodes. No ascites is seen. No CT evidence of acute appendicitis is seen. There is a periumbilical hernia with fat content, Pelvic sidewalls are symmetric bilaterally. Bladder is poorly distended. IMPRESSION: 1. No acute findings. CT was performed with one or more following dose reduction techniques: automated exposure control, adjustment of the mA and kv according to patient's size, or use of a iterative reconstruction technique.
[2025-01-12] MEDS: ketOROlac 30MG VIAL (30MG/ML) IVP ONE (22:44)
[2025-01-12 23:42] LABS: ADD UA MICROSCOPIC YES; APPEARANCE,URINE CLOUDY (CLEAR); BILIRUBIN,URINE NEGATIVE (NEGATIVE); COLOR,URINE YELLOW (YELLOW); GLUCOSE, URINE (UA) NEGATIVE (NEGATIVE); KETONES,URINE NEGATIVE (NEGATIVE); LEUKOCYTE ESTERASE ,URINE 75 Leu/uL (NEGATIVE); NITRATE,URINE NEGATIVE (NEGATIVE); OCCULT BLOOD,URINE NEGATIVE (NEGATIVE); PROTEIN,URINE 30 mg/dL (NEGATIVE); UROBILINOGEN,URINE 3 mg/dL (0.2-1.0)
[2025-01-12 23:45] LABS: MUCUS,URINE RARE LPF (None Seen); SQUAMOUS EPITHELIAL CELL,UR MANY /HPF (0-2)
[2025-01-12] MEDS ORDERED: NITR100C4 PO (23:52)
--- NOTE | 2025-01-12 23:52 | ERN ---
ED Note History of Present Illness Stated Complaint: RIGHT SIDE PAIN Chief Complaint: Flank Pain Time Seen by MD: 21:03 Time Seen by Midlevel: 21:03 Dictation: The patient is a 39-year-old female with a history of COPD, osteoarthritis who presents to the emergency department with complaints of right flank pain onset three days ago. Patient reports pain radiates to the right upper quadrant. Associated with some nausea. Denies any vomiting, fevers, bloody urine, urinary discomfort diarrhea or constipation. Denies any back trauma. Allergies: Coded Allergies: Tetanus Vaccines and Toxoid (Unverified Allergy, Unknown, HIVES, 01/18/23) ceftriaxone (Verified Allergy, Unknown, 09/06/14) Home Meds Active Scripts Ciprofloxacin HCl (Cipro) 500 Mg Tablet, 1 TAB PO BID for 10 Days, #20 TAB 0 Refills Prov:HUNG SANTOS MD 06/29/24 Prednisone (Prednisone) 20 Mg Tablet, 1 TAB PO AD for 6 Days, #14 TAB 0 Refills TAKE 1 TAB BY MOUTH THREE TIMES PER DAY X3 DAYS, THEN TAKE 1 TAB BY MOUTH TWICE A DAY X2 DAYS, THEN TAKE 1 TAB BY MOUTH ONCE A DAY X1 DAY. Prov:HUNG SANTOS MD 06/29/24 Reported Medications [Oxygen] No Conflict Check, 2 L NASAL HS PRN for SHORTNESS OF BREATH 11/30/23 Cholecalciferol (Vitamin D3) 1,250 Mcg (94954 Unit) Cap, 98821 UNITS PO QWEEK, CAP 11/30/23 Sulfamethoxazole/Trimethoprim (Bactrim Ds Tablet) 800 Mg-160 Mg Tablet, 1 TAB PO QMOWEFR, TAB 11/30/23 Famotidine (Famotidine) 40 Mg Tablet, 40 MG PO HS, TAB 11/30/23 Dexlansoprazole (Dexlansoprazole Dr) 60 Mg Cap.dr.bp, 60 MG PO DAILY 11/30/23 Mycophenolate Mofetil (Cellcept) 500 Mg Tablet, 1500 MG PO DAILY, TAB 11/30/23 Albuterol Sulfate (Proair Hfa) 8.5 Gm Hfa.aer.ad, 8.5 GM IH BID PRN for SHORTNE SS OF BREATH/WHEEZING 06/12/21 Montelukast Sodium (Montelukast Sodium) 10 Mg Tablet, 10 MG PO HS, TAB 06/12/21 Prednisone (Prednisone) 5 Mg Tablet, 7.5 MG PO DAILY, TAB 06/12/21 Mycophenolate Mofetil (Cellcept) 500 Mg Tablet, 1000 MG PO HS, TAB 06/12/21 Hydroxychloroquine Sulfate (Hydroxychloroquine Sulfate) 200 Mg Tablet, 200 MG PO DAILY, TAB 06/12/21 Trazodone HCl (Trazodone HCl) 50 Mg Tablet, 75 MG PO HS, TAB 06/12/21 Duloxetine HCl (Duloxetine HCl) 30 Mg Capsule.dr, 60 MG PO BID, CAP 06/12/21 Past Medical History Past Medical History: COPD, Immunosuppression, Liver Disease, Other Additional Past Medical Hx: RAYNAUDS DISEASE, OSTEOARTHRITIS, ADDISONS DISEASE Surgical History: None Social History: Negative, Lives with family History: Not Applicable RN Note Reviewed/Agreed w/PFSH: Yes Review of System Dictation Constitutional: Negative for fever,chills, and weight loss Eyes: Negative for injury, pain,redness, and discharge ENT: Negative for injury,pain or swelling Cardiovascular: Negative for chest pain, palpitations, and edema Respiratory: Negative for shortness of breath, cough, and wheezing, Abdomen/GI: Negative for, vomiting, diarrhea, and constipation positive for right upper abdominal pain, nausea Back: Negative for injury and pain positive for right flank pain : Negative for injury, bleeding and discharge MS/Extremity: Negative for injury and deformity Skin: Negative for rash, and discoloration Neuro: Negative for headache, weakness, numbness, tingling, and seizure Psych: Negative for suicide ideation, homicidal ideation, and hallucinations Initial Vital Sign VS Vital Signs Date Time Temp Pulse Resp B/P (MAP) Pulse Ox O2 Delivery O2 Flow Rate FiO2 01/12/25 20:24 96.6 103 22 110/76 96 Nasal Cannula 2.0 01/12/25 20:50 28 Physical Exam Dictation Vital Signs reviewed General Appearance: Alert, oriented x 3, no acute distress, well developed, nourished. Head and Face: non-traumatic. Eyes: PERRL, pink conjunctivas, eyelid no trauma, anterior chamber with arcus senilis. Ears: Pinnas intact and no signs of trauma or erythema ear canals clear and no discharge TM no erythema Nose: No discharge, no bleeding. Oropharynx: Mouth normal, tongue pink. pharynx clear,no erythema, tonsils no exudates, no abscesses noted, mucous membrane moist Neck: Supple, non-tender, no thyromegaly, no masses, no JVD, no bruits Breast:Deferred Chest:No tenderness, no crepitus, no paradoxical movement, no retractions Lungs:Clear, well-ventilated, symmetric, no rales, no wheezing, no rhonchi, no stridor, good breath sounds bilaterally Heart: Regular rate, regular rhythm, no murmur, no gallops Vascular: no peripheral edema, Abdomen: Soft, positive bowel sounds, nondistended, no guarding, nontender, no rebound, no masses no hepatomegaly, no splenomegaly, no Walsh's sign, no hernias. Rectal: Deferred Genital: Deferred Neurological: Normal speech, motor function intact, sensory function intact Musculoskeletal: Neck nontender, full range of motion, back nontender, full range of motion, Extremities: nontender, full range of motion Skin: Color pink, dry, no turgor, no rash, no lacerations, no abrasions, no contusions. Lymphatic: Deferred Results (Laboratory/Radiology) Laboratory/Radiology Laboratory Tests Test 01/12/25 21:21 01/12/25 23:35 White Blood Count 7.5 K/uL (4.8-10.8) Red Blood Count 4.21 MIL/uL (4.00-5.50) Hemoglobin 12.2 g/dL (12.0-16.0) Hematocrit 38.1 % (36-48) Mean Corpuscular Volume 90.5 fL (79-99) Mean Corpuscular Hemoglobin 29.0 pg (27.0-33.0) Mean Corpuscular Hemoglobin Concent 32.0 g/dL (32.0-36.0) Red Cell Distribution Width 12.4 % (11.0-15.5) Platelet Count 180 K/uL (130-400) Mean Platelet Volume 10.3 fL (7.5-10.5) Immature Granulocyte % (Auto) 0.3 % (0-1) Neutrophils (%) (Auto) 55.8 % (40.0-77.0) Lymphocytes (%) (Auto) 28.6 % (21.0-51.0) Monocytes (%) (Auto) 10.1 % (3.0-13.0) Eosinophils (%) (Auto) 4.4 % (0.0-8.0) Basophils (%) (Auto) 0.8 % (0.0-5.0) Neutrophils # (Auto) 4.2 K/uL (1.8-7.7) Lymphocytes # (Auto) 2.2 K/uL (1.0-4.8) Monocytes # (Auto) 0.8 K/uL (0.1-1.0) Eosinophils # (Auto) 0.33 K/uL (0.00-0.70) Basophils # (Auto) 0.06 K/uL (0.00-0.20) Absolute Immature Granulocyte (auto 0.02 K/uL (0-1) Nucleated Red Blood Cells 0.0 % (0.0-0.19) Sodium Level 143 mmol/L (136-145) Potassium Level 3.6 mmol/L (3.5-5.1) Chloride Level 105 mmol/L (101-111) Carbon Dioxide Level 31 mmol/L (21-32) Blood Urea Nitrogen 18 mg/dL (7-18) Creatinine 0.8 mg/dL (0.5-1.0) Glomerular Filtration Rate Calc 96 mL/min (>90) Random Glucose 86 mg/dL (70-105) Total Calcium 8.3 mg/dL (8.5-10.1) L Total Bilirubin 0.3 mg/dL (0.2-1.0) Direct Bilirubin 0.1 mg/dL (0.0-0.3) Aspartate Amino Transf (AST/SGOT) 27 U/L (10-37) Alanine Aminotransferase (ALT/SGPT) 41 U/L (12-78) Alkaline Phosphatase 104 U/L (50-136) Total Protein 6.5 g/dL (6.0-8.3) Albumin 3.5 g/dL (3.5-5.0) Lipase 15 U/L (16-77) L Serum Test, Qualitative NEGATIVE (NEGATIVE) Urine Color YELLOW (YELLOW) Urine Appearance CLOUDY (CLEAR) H Urine pH 6.0 (5.0-8.0) Urine Specific [place] 1.042 (1.001-1.031) Urine Protein 30 mg/dL (NEGATIVE) H Urine Glucose (UA) NEGATIVE mg/dL (NEGATIVE) Urine Ketones NEGATIVE mg/dL (NEGATIVE) Urine Occult Blood NEGATIVE (NEGATIVE) Urine Nitrate NEGATIVE (NEGATIVE) Urine Bilirubin NEGATIVE mg/dL (NEGATIVE) Urine Urobilinogen 3 mg/dL (0.2-1.0) H Urine Leukocyte Esterase 75 Chance/uL (NEGATIVE) H Urine RBC 2-5 /HPF (0-1) H Urine WBC 2-5 /HPF (0-1) H Urine Squamous Epithelial Cells MANY /HPF (0-2) Urine Bacteria None /HPF (None Seen) REASON: right flank pain ORDERING PHYSICIAN: ROSIE MARSH PROCEDURE: ABD PEL WO - CT ABDOMEN/PELVIS W/O CONTRAST CT ABDOMEN/PELVIS W/O CONTRAST HISTORY: Right flank pain. COMPARISON: 01/19/2033 TECHNIQUE: Multiple sequential axial images of the abdomen and pelvis were obtained from the dome of the diaphragm through symphysis pubis. Patient was not given contrast through intravenous route. Oral contrast was not given. FINDINGS: No pleural effusion is seen bilaterally. Bilateral groundglass patchy pulmonary infiltrates are seen. Degenerative changes of the thoracolumbar spine are present. The heart is not enlarged. Liver measures 20 cm. Postcholecystectomy changes. The liver, spleen, adrenal glands and pancreas are unremarkable. There is no evidence of hydronephrosis bilaterally. No evidence of renal stone is seen. Fecal material is seen in the colon. There are normal size retroperitoneal and mesenteric lymph nodes. No ascites is seen. No CT evidence of acute appendicitis is seen. There is a periumbilical hernia with fat content, Pelvic sidewalls are symmetric bilaterally. Bladder is poorly distended. IMPRESSION: 1. No acute findings. CT was performed with one or more following dose reduction techniques: automated exposure control, adjustment of the mA and kv according to patient's size, or use of a iterative reconstruction technique. Labs Reviewed?: Yes ED Course ED Course Orders Procedure Category Date Status Time Cbc With Differential LAB 01/12/25 Complete 21:08 Urinalysis Profile LAB 01/12/25 Complete 21:08 0.9%Nacl 1000ml (Ns PHA 01/12/25 Complete 1000ml) 21:30 Morphine 4mg Syg PHA 01/12/25 Complete (Morphine 4mg Syg) 21:30 Ondansetron 4mg Inj PHA 01/12/25 Complete (Zofran 4mg Inj) 21:30 Lipase LAB 01/12/25 Complete 21:08 Basic Metabolic Panel LAB 01/12/25 Complete 21:08 Testing, LAB 01/12/25 Complete Serum Hcg 21:08 Hepatic Function Panel LAB 01/12/25 Complete 21:08 Ct Abdomen/Pelvis W/O CT 01/12/25 Resulted Contrast 21:45 Ketorolac PHA 01/12/25 Complete Tromethamine 30mg/Ml 23:00 Culture Urine CHEO 01/12/25 Logged 23:43 Current Medications Medications (Trade) Dose Ordered Sig/Saulo Route PRN Reason Start Time Stop Time Status Last Admin Dose Admin Ketorolac Tromethamine (toRADol) 30 mg ONCE ONCE IVP 01/12/25 23:00 01/12/25 23:01 DC 01/12/25 22:44 Morphine Sulfate (morPHINE 4MG SYG) 4 mg ONCE ONCE IVP 01/12/25 21:30 01/12/25 21:31 DC 01/12/25 21:27 Ondansetron HCl (zoFRAN 4MG INJ) 4 mg ONCE ONCE IVP 01/12/25 21:30 01/12/25 21:31 DC 01/12/25 21:27 Sodium Chloride 1,000 ml @ 0 mls/hr ONCE ONCE IV 01/12/25 21:30 01/12/25 21:31 DC 01/12/25 21:27 Vital Signs Date Time Temp Pulse Resp B/P (MAP) Pulse Ox O2 Delivery O2 Flow Rate FiO2 01/12/25 20:50 98.1 88 18 93/54 100 Nasal Cannula* 2 28 01/12/25 20:24 96.6 103 22 110/76 96 Nasal Cannula 2.0 Medical Decision Making MDM The patient is a 39-year-old female with a history of COPD, osteoarthritis who presents to the emergency department with complaints of right flank pain onset three days ago. Patient reports pain radiates to the right upper quadrant. Associated with some nausea. Denies any vomiting, fevers, bloody urine, urinary discomfort diarrhea or constipation. Denies any back trauma. CBC showed no leukocytosis, no anemia, chemistry showed GFR 93, no electrolyte imbalance, negative lipase, negative liver enzymes, urinalysis with scant leukocyte esterase. Patient will be treated with the antibiotics as outpatient. CT showed no acute pathology. Patient in no acute distress, stable vital signs would be discharged to follow up with primary doctor. Differential diagnosis: Kidney stones, UTI, pyelonephritis, electrolyte imbalance Need for hospitalization: Patient does not meet criteria for hospitalization. There are no social concerns with this patient. DX & DISP Disposition: Discharge Departure Impression: Primary Impression: Right flank pain Additional Impression: UTI (urinary tract infection) Condition: Stable Scripts Nitrofurantoin Monohyd/M-Cryst (Macrobid 100 mg Capsule) 100 Mg Capsule 1 CAP PO BID for 5 Days, #10 CAP 0 Refills Prov: ROSIE MARSH 01/12/25 Additional Instructions: Please take medications as prescribed. Please follow up with the primary doctor in 1-2 days. If symptoms worsen please return to ER. FOLLOW-UP WITH PRIMARY CARE PROVIDER IN 1 TO 2 DAYS. TAKE MEDICATIONS DIRECTED HERE IN THE EMERGENCY ROOM. OKAY TO CONTINUE HOME MEDICATIONS UNLESS OTHERWISE DISCUSSED DURING YOUR VISIT IN THE EMERGENCY ROOM TODAY. RETURN TO YOUR NEAREST EMERGENCY ROOM IF SYMPTOMS WORSEN OR IF THERE IS NO IMPROVEMENT. CALL 911 IF YOU NEED IMMEDIATE ASSISTANCE. TAKE TYLENOL OR MOTRIN [id number] NEEDED AND IF NO CONTRAINDICATIONS ARE PRESENT. INCREASE ORAL HYDRATION. A WOUND CULTURE OR URINE CULTURE WAS ORDERED HERE IN THE EMERGENCY ROOM DEPARTMENT PLEASE FOLLOW-UP WITH PRIMARY CARE PROVIDER AND ADVISE THEM TO GET REPEAT PORTS FROM OUR FACILITY. IF YOU HAD ANY NGHIA WRAP/SPLINTS THAT WERE APPLIED HERE, PLEASE DO NOT REMOVE THEM UNTIL YOU SEE YOUR PRIMARY CARE OR SPECIALTY. Referrals: JAMIE GIANG (PCP) Time of Disposition: 23:51 I have reviewed the case, and I agree with, Diagnosis and Plan ROSIE MARSH Jan 12, 2025 23:52
[2025-01-13 00:20] VITALS: BP 101/61; PULSE 72; RESP 16; O2SAT 100
== END 2025-01-13 00:21 | disposition home or self-care (01) ==
LOC: EDH 20:24
DX: N39.0 Urinary tract infection, site not specified (principal); M19.90 Unspecified osteoarthritis, unspecified site; J44.9 Chronic obstructive pulmonary disease, unspecified; Z79.52 Long term (current) use of systemic steroids; Z79.624 Long term (current) use of inhibitors of nucleotide synthesis; Z79.899 Other long term (current) drug therapy; Z88.1 Allergy status to other antibiotic agents; Z88.7 Allergy status to serum and vaccine
CPT/HCPCS: 99285; 74176; 96374; 96375; 96361; 80076; 80048; 84703; 83690; 85025; 87086; 81001; 36415; J1885; J7030; J2405; J2270

== ENCOUNTER 2025-08-14 13:42 | Emergency (ER) | payer OTHER, MEDICAID ==
[~2025-08-14] VITALS: Ht 157.5 cm; Wt 133.4 kg
[~2025-08-14 13:42] MED LIST changes: +NITR100C4 PO
[2025-08-14 14:19] LABS: IMMATURE GRANULOCYTE ABSOLUTE 0.02 K/uL (0-1); NUCLEATED RED BLOOD CELLS 0.0 % (0.0-0.19); PLATELET COUNT (AUTO) 197 K/uL (130-400); RED BLOOD CELL COUNT(AUTO) 4.47 MIL/uL (4.00-5.50); RED CELL DISTRIBUTION WIDTH 14.3 % (11.0-15.5); WHITE BLOOD COUNT (AUTO) 5.9 K/uL (4.8-10.8)
[2025-08-14 14:28] LABS: CREATININE 0.7 mg/dL (0.5-1.0); GLOMERULAR FILTR. RATE CALC 112.0 mL/min (>90); GLUCOSE,RANDOM 90.0 mg/dL (70-105); SODIUM SERUM 140.0 mmol/L (136-145); UREA NITROGEN, BLOOD 8.0 mg/dL (7-18)
[2025-08-14 14:41] LABS: HCG,QUANTITATIVE 0.0 mIU/mL (0-5)
--- NOTE | 2025-08-14 16:56 | NUR ---
RECEIVING PT NOW TO ROOM 13
--- NOTE | 2025-08-14 17:04 | ERN ---
General Chief Complaint: Multiple Complaints Stated Complaint: MULTIPLE COMPLAINTS Time Seen by MD: 13:44 Source: patient History of Present Illness Initial Comments Patient is a 40-year-old female coming in with multiple complaints. Per patient she has been feeling in his little nauseousness has been complaining of body aches. She states that she has a history of fibromyalgia and usually has been he has flare-ups. Allergies: Coded Allergies: Tetanus Vaccines and Toxoid (Unverified Allergy, Unknown, HIVES, 01/18/23) ceftriaxone (Verified Allergy, Unknown, 09/06/14) Home Meds Active Scripts Nitrofurantoin Monohyd/M-Cryst (Macrobid 100 mg Capsule) 100 Mg Capsule, 1 CAP PO BID for 5 Days, #10 CAP 0 Refills Prov:ROSIE MARSH DIRECTOR OF CASINO 01/12/25 Ciprofloxacin HCl (Cipro) 500 Mg Tablet, 1 TAB PO BID for 10 Days, #20 TAB 0 Refills Prov:HUNG SANTOS MD 06/29/24 Prednisone (Prednisone) 20 Mg Tablet, 1 TAB PO AD for 6 Days, #14 TAB 0 Refills TAKE 1 TAB BY MOUTH THREE TIMES PER DAY X3 DAYS, THEN TAKE 1 TAB BY MOUTH TWICE A DAY X2 DAYS, THEN TAKE 1 TAB BY MOUTH ONCE A DAY X1 DAY. Prov:HUNG SANTOS MD 06/29/24 Reported Medications [Oxygen] No Conflict Check, 2 L NASAL HS PRN for SHORTNESS OF BREATH 11/30/23 Cholecalciferol (Vitamin D3) 1,250 Mcg (61892 Unit) Cap, 53245 UNITS PO QWEEK, CAP 11/30/23 Sulfamethoxazole/Trimethoprim (Bactrim Ds Tablet) 800 Mg-160 Mg Tablet, 1 TAB PO QMOWEFR, TAB 11/30/23 Famotidine (Famotidine) 40 Mg Tablet, 40 MG PO HS, TAB 11/30/23 Dexlansoprazole (Dexlansoprazole Dr) 60 Mg Cap.dr.bp, 60 MG PO DAILY 11/30/23 Mycophenolate Mofetil (Cellcept) 500 Mg Tablet, 1500 MG PO DAILY, TAB 11/30/23 Albuterol Sulfate (Proair Hfa) 8.5 Gm Hfa.aer.ad, 8.5 GM IH BID PRN for SHORTNESS OF BREATH/WHEEZING 06/12/21 Montelukast Sodium (Montelukast Sodium) 10 Mg Tablet, 10 MG PO HS, TAB 06/12/21 Prednisone (Prednisone) 5 Mg Tablet, 7.5 MG PO DAILY, TAB 06/12/21 Mycophenolate Mofetil (Cellcept) 500 Mg Tablet, 1000 MG PO HS, TAB 06/12/21 Hydroxychloroquine Sulfate (Hydroxychloroquine Sulfate) 200 Mg Tablet, 200 MG PO DAILY, TAB 06/12/21 Trazodone HCl (Trazodone HCl) 50 Mg Tablet, 75 MG PO HS, TAB 06/12/21 Duloxetine HCl (Duloxetine HCl) 30 Mg Capsule.dr, 60 MG PO BID, CAP 06/12/21 Past Medical History Past Medical History: Asthma, Other Medical History Other: PULMONARY FIBROSIS, OSTEOARTHIRITIS, OSTEOPOROSIS Past Surgical History: Tonsillectomy, Cholecystectomy Social History Social History: Negative, Lives with family Female( History) History: Not Applicable LMP: Aug 10, 2025 ROS Dictation CONSTITUTIONAL: No chills, no fever, no weakness, no diaphoresis, no malaise. HEAD/FACE: No signs of trauma. EENT: No eye pain, no blurred vision, no tearing, no double vision, no ear pain, no ear discharge, no nose pain, no nasal congestion, no throat pain, no throat swelling, no mouth pain. RESPIRATORY: No cough, no orthopnea, no SOB, no stridor, no wheezing. CARDIOVASCULAR: No chest pain, no edema, no palpitations, no syncope. GASTROINTESTINAL/ABDOMINAL: No abdominal pain, no constipation, no diarrhea, no nausea, no vomiting. GENITOURINARY: No abnormal discharge, no dysuria, no frequent urination, no hematuria. No complaints of pain in the genitals. MUSCULOSKELETAL: No back pain, no gout, no joint pain, no joint swelling, no muscle pain, no muscle stiffness, no neck pain. INTEGUMENTARY: No change in color, no change in hair/nails, no dryness, no lesion, no lumps, no rash. NEUROLOGICAL/PSYCH: No anxiety, not depressed, no emotional problem, no headache, no numbness, no pre-existing deficit, no history of seizures, no tremors, no weakness. HEMATOLOGIC/LYMPHATIC: Not anemic, no history of blood clots, no apparent bleeding, no bruising, glands not swollen. All Systems Negative, Except as Noted. Physical Exam Physical Exam Dictation VITAL SIGNS: Reviewed. GENERAL APPEARANCE: Alert, oriented x3, no acute distress, obese. HEAD AND FACE: Non-traumatic. EYES: PERRL, pink conjunctivas, eyelid no trauma, anterior chamber clear. EARS: Pinnas intact and no signs of trauma or erythema. Ear canals clear and no discharge. TMs no erythema. NOSE: No discharge, no bleeding. OROPHARYNX: Mouth normal, teeth no caries, tongue pink. Pharynx clear, no erythema. Tonsils no exudates, no abscesses noted. Mucous membrane moist. NECK: Supple, non-tender, no thyromegaly, no masses, no JVD, no bruits. BREAST: Deferred. CHEST: No tenderness, no crepitus, no paradoxical movement, no retractions. LUNGS: Clear, well-ventilated, symmetric, no rales, no wheezing, no rhonchi, no stridor, good breath sounds bilaterally. HEART: Regular rate, regular rhythm, no murmur, no gallops. VASCULAR: No peripheral edema. ABDOMEN: Soft, positive bowel sounds, nondistended, no guarding, nontender, no rebound, no masses no hepatomegaly, no splenomegaly, no Walsh's sign, no hernias. RECTAL: Deferred. GENITAL: Deferred. NEUROLOGICAL: Normal speech, gross motor function intact, gross sensory function intact. MUSCULOSKELETAL: Neck nontender, full range of motion, back nontender, full range of motion. EXTREMITIES: Nontender, full range of motion. SKIN: Color pink, dry, no turgor, no rash, no lacerations, no abrasions, no contusions. LYMPHATICS: Deferred. Results Laboratory and Microbiology Lab and Micro Result Laboratory Tests Test 08/14/25 14:14 08/14/25 17:00 08/14/25 17:20 White Blood Count 5.9 K/uL (4.8-10.8) Red Blood Count 4.47 MIL/uL (4.00-5.50) Hemoglobin 11.1 g/dL (12.0-16.0) L Hematocrit 36.5 % (36-48) Mean Corpuscular Volume 81.7 fL (79-99) Mean Corpuscular Hemoglobin 24.8 pg (27.0-33.0) L Mean Corpuscular Hemoglobin Concent 30.4 g/dL (32.0-36.0) L Red Cell Distribution Width 14.3 % (11.0-15.5) Platelet Count 197 K/uL (130-400) Mean Platelet Volume 9.9 fL (7.5-10.5) Immature Granulocyte % (Auto) 0.3 % (0-1) Neutrophils (%) (Auto) 50.6 % (40.0-77.0) Lymphocytes (%) (Auto) 29.5 % (21.0-51.0) Monocytes (%) (Auto) 10.5 % (3.0-13.0) Eosinophils (%) (Auto) 8.3 % (0.0-8.0) H Basophils (%) (Auto) 0.8 % (0.0-5.0) Neutrophils # (Auto) 3.0 K/uL (1.8-7.7) Lymphocytes # (Auto) 1.8 K/uL (1.0-4.8) Monocytes # (Auto) 0.6 K/uL (0.1-1.0) Eosinophils # (Auto) 0.49 K/uL (0.00-0.70) Basophils # (Auto) 0.05 K/uL (0.00-0.20) Absolute Immature Granulocyte (auto 0.02 K/uL (0-1) Nucleated Red Blood Cells 0.0 % (0.0-0.19) Red Blood Cell Morphology See comments Sodium Level 140 mmol/L (136-145) Potassium Level 4.2 mmol/L (3.5-5.1) Chloride Level 106 mmol/L (101-111) Carbon Dioxide Level 29 mmol/L (21-32) Blood Urea Nitrogen 8 mg/dL (7-18) Creatinine 0.7 mg/dL (0.5-1.0) Glomerular Filtration Rate Calc 112 mL/min (>90) Random Glucose 90 mg/dL (70-105) Total Calcium 8.9 mg/dL (8.5-10.1) Human Chorionic Gonadotropin, Quant 0 mIU/mL (0-5) Influenza Type A Antigen Negative For Type A Influenza Type B Antigen Negative For Type B SARS-CoV-2, RNA, NAAT NEGATIVE SARS CoV-2 Urine Color LIGHT-YELLOW (YELLOW) Urine Appearance CLEAR (CLEAR) Urine pH 7.0 (5.0-8.0) Urine Specific [place] 1.018 (1.001-1.031) Urine Protein NEGATIVE mg/dL (NEGATIVE) Urine Glucose (UA) NEGATIVE mg/dL (NEGATIVE) Urine Ketones NEGATIVE mg/dL (NEGATIVE) Urine Occult Blood SMALL (NEGATIVE) H Urine Nitrate NEGATIVE (NEGATIVE) Urine Bilirubin NEGATIVE mg/dL (NEGATIVE) Urine Urobilinogen 0.2 mg/dL (0.2-1.0) Urine Leukocyte Esterase NEGATIVE Chance/uL Urine HCG, Qualitative NEGATIVE (NEGATIVE) Labs Reviewed?: Yes MDM MDM: Differential diagnosis: Fibromyalgia, body aches, flu, COVID, strep Rationale: Tests considered and ordered secondary to shared decision making include: Previous outside records reviewed: Old ER visits. Risk of complication and/or morbidity or mortality of patient management: None Medications-Per medication reconciliation Need for hospitalization: Patient does not meet criteria for hospitalization. Need for emergency major/minor surgery: No There are no social concerns with this patient. Patient is a 40-year-old female coming in with multiple complaints. Patient states he has got a history of fibromyalgia laboratory workup within normal limits. Patient was treated with IV fluids as well as pain medication we will be discharged in stable condition. I did advised her appropriate follow up with PCP for long-term management. ED Course Orders Procedure Category Date Status Time Cbc With Differential LAB 08/14/25 Complete 13:47 Hcg,Quantitative LAB 08/14/25 Complete 13:47 ,Urine Test LAB 08/14/25 Complete 13:47 Urinalysis Profile LAB 08/14/25 Complete 13:47 Basic Metabolic Panel LAB 08/14/25 Complete 13:47 Covid Rna Naat LAB 08/14/25 Complete 13:47 Influenza Type A & B, LAB 08/14/25 Complete Rapid 13:47 Vital Signs Date Time Temp Pulse Resp B/P (MAP) Pulse Ox O2 Delivery O2 Flow Rate FiO2 08/14/25 13:44 98.2 92 19 119/43 97 Room Air 0 DX & DISP Disposition: Discharge Departure Impression: Primary Impression: History of dermatomyositis Additional Impressions: Myalgia, Muscle ache Condition: Stable Additional Instructions: FOLLOW-UP WITH PRIMARY CARE PROVIDER IN 1 TO 2 DAYS. TAKE MEDICATIONS DIRECTED HERE IN THE EMERGENCY ROOM. OKAY TO CONTINUE HOME MEDICATIONS UNLESS OTHERWISE DISCUSSED DURING YOUR VISIT IN THE EMERGENCY ROOM TODAY. RETURN TO YOUR NEAREST EMERGENCY ROOM IF SYMPTOMS WORSEN OR IF THERE IS NO IMPROVEMENT. CALL 911 IF YOU NEED IMMEDIATE ASSISTANCE. TAKE TYLENOL [id number] NEEDED AND IF NO CONTRAINDICATIONS ARE PRESENT. INCREASE ORAL HYDRATION. A WOUND CULTURE OR URINE CULTURE WAS ORDERED HERE IN THE EMERGENCY ROOM DEPARTMENT PLEASE FOLLOW-UP WITH PRIMARY CARE PROVIDER AND ADVISE THEM TO GET REPORTS FROM OUR FACILITY. IF YOU HAD ANY NGHIA WRAP/SPLINTS THAT WERE APPLIED HERE, PLEASE DO NOT REMOVE THEM UNTIL YOU SEE YOUR PRIMARY CARE OR SPECIALTY. Referrals: Referrals: JAMIE GIANG (PCP) Time of Disposition: 17:58 KAT HEAD MD Aug 14, 2025 17:04
[2025-08-14 17:34] LABS: SARS-CoV-2, RNA, NAAT NEGATIVE SARS CoV-2 (NEGATIVE)
[2025-08-14 17:36] LABS: APPEARANCE,URINE CLEAR (CLEAR); GLUCOSE, URINE (UA) NEGATIVE (NEGATIVE); LEUKOCYTE ESTERASE ,URINE NEGATIVE Leu/uL (NEGATIVE); NITRATE,URINE NEGATIVE (NEGATIVE); OCCULT BLOOD,URINE SMALL (NEGATIVE)
[2025-08-14 17:36] LABS: INFLUENZA TYPE A Negative For Type A (NEGATIVE); INFLUENZA TYPE B Negative For Type B (NEGATIVE)
[2025-08-14 17:38] LABS: ADD UA MICROSCOPIC NO; HCG,QUALITATIVE URINE NEGATIVE (NEGATIVE)
[2025-08-14] MEDS: 0.9%NACL 1000ML 1,000 ML IV ONE (18:35)
[2025-08-14 19:27] VITALS: BP 105/62; PULSE 80; RESP 16; TEMP 98.3; O2SAT 100
== END 2025-08-14 19:31 | disposition home or self-care (01) ==
LOC: EDH 13:42
DX: M79.10 Myalgia, unspecified site (principal); J45.909 Unspecified asthma, uncomplicated; Z20.822 Contact with and (suspected) exposure to COVID-19; Z79.52 Long term (current) use of systemic steroids; Z79.624 Long term (current) use of inhibitors of nucleotide synthesis; Z79.899 Other long term (current) drug therapy; Z88.1 Allergy status to other antibiotic agents; Z88.7 Allergy status to serum and vaccine; Z90.49 Acquired absence of other specified parts of digestive tract; Z90.89 Acquired absence of other organs
CPT/HCPCS: 99283; 96360; 87635; 80048; 84702; 85025; 87804 ×2; 81003; 81025; 36415; J7030